=== PATIENT | female | born 1960 | race American Indian/Alaskan Native ===

== ENCOUNTER 2017-03-18 17:35 | Emergency (ER) | payer SELFPAY ==
[2017-03-18] MEDS ORDERED: CATAPRES ONE (21:30)
[2017-03-18] MEDS ORDERED: CATAPRES PO ONE (21:31)
[2017-03-18 21:53] LABS: Basophils % (Auto) 0.8 % (0.0-1.8); Eosinophils % (Auto) 3.7 % (0.0-4.3); Hematocrit 38.4 % (30.3-42.9); Hemoglobin 13.3 gm/dl (10.1-14.3); Mean Corpuscular HGB Conc 35 % (30-34); Mean Corpuscular Hemoglobin 30 pg (28-32); Mean Corpuscular Volume 87 fl (79-97); Platelet Count 201 K/mm3 (140-440); Red Cell Distribution Width 14.2 % (13.2-15.2); White Blood Count 9.4 K/mm3 (4.5-11.0)
[2017-03-18 22:14] LABS: Alanine Aminotransferase 16 units/L (7-56); Albumin 3.7 g/dL (3.9-5); Albumin/Globulin Ratio 1.2 %; Alkaline Phosphatase 90 units/L (35-129); Anion Gap 19 mmol/L; Bilirubin,Total < 0.20 mg/dL (0.1-1.2); Blood Urea Nitrogen 15 mg/dL (7-17); Calcium 8.8 mg/dL (8.4-10.2); Carbon Dioxide 24 mmol/L (22-30); Chloride 105.7 mmol/L (98-107); Glucose 135 mg/dL (65-100); Lipase 34 units/L (13-60); Potassium 3.7 mmol/L (3.6-5.0); Sodium 145 mmol/L (137-145); Total Protein 6.8 g/dL (6.3-8.2)
--- NOTE | 2017-03-19 08:32 | Emergency Department Report ---
ED General Adult HPI - General Chief complaint: Neck Pain/Injury Stated complaint: SEVERE LT SIDE NECK PAIN/LT SHOULDER/LT EYE PAIN Time Seen by Provider: 03/19/17 08:15 Source: patient Mode of arrival: Ambulatory Limitations: No Limitations - History of Present Illness Initial comments: The patient has chronic left-sided neck pain which she states he's had for 15 years involves the trapezius area. It is not midline cervical. She's had no recent injury. She is not currently working. She has history of arthritis. She has had no neurological change. She is noncompliant with her blood pressure medicine. -: Gradual, year(s) Location: left (trapezius) Radiation: non-radiation Severity scale (0 -10): 5 Quality: aching Consistency: intermittent Improves with: none Worsens with: none Associated Symptoms: denies other symptoms Treatments Prior to Arrival: none - Related Data Previous Rx's Medication Instructions Recorded Last Taken Type Cyclobenzaprine HCl [Flexeril 5 MG 5 mg PO TID PRN #20 tab 03/19/17 Unknown Rx TAB] Lisinopril/Hydrochlorothiazide 1 tab PO QDAY #30 tab 03/19/17 Unknown Rx [Zestoretic 20-12.5 mg] traMADol [Ultram] 50 mg PO Q6HR PRN #7 tablet 03/19/17 Unknown Rx Allergies Allergy/AdvReac Type Severity Reaction Status Date / Time No Known Allergies Allergy Verified 02/13/15 05:07 ED Review of Systems ROS: Stated complaint: SEVERE LT SIDE NECK PAIN/LT SHOULDER/LT EYE PAIN Other details as noted in HPI Constitutional: denies: chills, fever Eyes: denies: eye pain, eye discharge, vision change ENT: denies: ear pain, throat pain Respiratory: denies: cough, shortness of breath, wheezing Cardiovascular: denies: chest pain, palpitations Endocrine: no symptoms reported Gastrointestinal: denies: abdominal pain, nausea, diarrhea Genitourinary: denies: urgency, dysuria, discharge Musculoskeletal: as per HPI. denies: back pain, joint swelling, arthralgia Skin: denies: rash, lesions Neurological: denies: headache, weakness, paresthesias Psychiatric: denies: anxiety, depression Hematological/Lymphatic: denies: easy bleeding, easy bruising ED Past Medical Hx - Past Medical History Previous Medical History?: Yes Hx Hypertension: Yes Hx Arthritis: Yes Hx Headaches / Migraines: Yes Additional medical history: migrianes. tia - Surgical History Past Surgical History?: Yes Additional Surgical History: - Social History Smoking Status: Current Every Day Smoker Substance Use Type: None - Medications Home Medications: Home Medications Medication Instructions Recorded Confirmed Last Taken Type Cyclobenzaprine HCl [Flexeril 5 MG 5 mg PO TID PRN #20 tab 03/19/17 Unknown Rx TAB] Lisinopril/Hydrochlorothiazide 1 tab PO QDAY #30 tab 03/19/17 Unknown Rx [Zestoretic 20-12.5 mg] traMADol [Ultram] 50 mg PO Q6HR PRN #7 tablet 03/19/17 Unknown Rx ED Physical Exam - General Limitations: No Limitations General appearance: alert, in no apparent distress - Head Head exam: Present: atraumatic, normocephalic - Eye Eye exam: Present: normal appearance, PERRL, EOMI. Absent: scleral icterus - ENT ENT exam: Present: normal exam, mucous membranes moist - Neck Neck exam: Present: normal inspection, tenderness (left trapezius tenderness no paravertebral or vertebral tenderness), full ROM. Absent: meningismus, lymphadenopathy, thyromegaly - Respiratory Respiratory exam: Present: normal lung sounds bilaterally. Absent: respiratory distress - Cardiovascular Cardiovascular Exam: Present: regular rate, normal rhythm. Absent: systolic murmur, diastolic murmur, rubs, gallop - GI/Abdominal GI/Abdominal exam: Present: soft, normal bowel sounds. Absent: distended, tenderness, guarding, rebound, rigid - Extremities Exam Extremities exam: Present: normal inspection - Back Exam Back exam: Present: normal inspection - Neurological Exam Neurological exam: Present: alert, oriented X3, CN II-XII intact. Absent: motor sensory deficit - Psychiatric Psychiatric exam: Present: normal affect, normal mood - Skin Skin exam: Present: warm, dry, intact, normal color. Absent: rash ED Course Vital Signs 03/18/17 03/18/17 03/19/17 21:22 21:31 04:56 Temperature 97.7 F 98.6 F Pulse Rate 63 63 63 Respiratory 18 18 Rate Blood Pressure 195/111 157/101 Blood Pressure 195/111 [Right] O2 Sat by Pulse 100 98 Oximetry ED Medical Decision Making - Lab Data Result diagrams: 03/18/17 21:35 06/16/17 21:35 Laboratory Results - last 24 hr 03/18/17 03/18/17 21:35 21:35 WBC 9.4 RBC 4.40 Hgb 13.3 Hct 38.4 MCV 87 MCH 30 MCHC 35 H RDW 14.2 Plt Count 201 Lymph % (Auto) 40.0 H [place] % (Auto) 6.7 Eos % (Auto) 3.7 Baso % (Auto) 0.8 Lymph # 3.8 [place] # 0.6 Eos # 0.4 Baso # 0.1 Seg Neutrophils % 48.8 Seg Neutrophils # 4.6 Sodium 145 Potassium 3.7 Chloride 105.7 Carbon Dioxide 24 Anion Gap 19 BUN 15 Creatinine 1.0 Estimated GFR > 60 BUN/Creatinine Ratio 15.00 Glucose 135 H Calcium 8.8 Total Bilirubin < 0.20 AST 16 ALT 16 Alkaline Phosphatase 90 Troponin T < 0.010 Total Protein 6.8 Albumin 3.7 L Albumin/Globulin Ratio 1.2 Lipase 34 - EKG Data EKG shows normal: sinus rhythm, axis, intervals, QRS complexes, ST-T waves Rate: bradycardia Critical care attestation.: If time is entered above; I have spent that time in minutes in the direct care of this critically ill patient, excluding procedure time. ED Disposition Clinical Impression: Musculoskeletal neck pain, Uncontrolled hypertension Disposition: - TO HOME OR SELFCARE Is pt being admited?: No Does the pt Need Aspirin: No Condition: Stable Instructions: Hypertension (ED), Musculoskeletal Pain (ED) Additional Instructions: Return any acute change or problem. Blood pressure management with primary care for example [facility]. Rx as directed. Prescriptions: Cyclobenzaprine HCl [Flexeril 5 MG TAB] 5 mg PO TID PRN #20 tab PRN Reason: Spasms Lisinopril/Hydrochlorothiazide [Zestoretic 20-12.5 mg] 1 tab PO QDAY #30 tab traMADol [Ultram] 50 mg PO Q6HR PRN #7 tablet PRN Reason: Pain Referrals: PRIMARY CARE, [Primary Care Provider] - 3-5 Days Time of Disposition: 08:32
[2017-03-19 08:36] VITALS: BP 190/91
== END 2017-03-19 08:49 | disposition home or self-care (01) ==
LOC: ED 17:35
DX: M54.2 Cervicalgia (principal); I10 Essential (primary) hypertension; G43.909 Migraine, unspecified, not intractable, without status migrainosus; M19.90 Unspecified osteoarthritis, unspecified site; F17.210 Nicotine dependence, cigarettes, uncomplicated
CPT/HCPCS: 36415; 80053; 83690; 84484; 85025; 93005; 93010; 99284

== ENCOUNTER 2019-01-14 20:10 | Emergency (ER) | payer OTHER ==
--- NOTE | 2019-01-14 21:40 | Emergency Department Report ---
Chief Complaint: Headache Stated Complaint: LOWER BACK PAIN/HEADACHE Time Seen by Provider: 01/14/19 21:36 - HPI History of Present Illness: Pt presents frontal FLORES, states she has chronic migraines chronic back pain, hx of DDD, hx of "slipped disc" no new fall, injury, trauma states she has tingling in her bilateral hands no numbness, weakness hx of HTN, is supposed to be taking atenolol, lisinopril, and hctz (+) smoker no ETOH/drug use MSE screening note: Focused history and physical exam performed. Due to findings the following was ordered: labs, UA, EKG, CT head ED Disposition for MSE Condition: Stable
[2019-01-14] MEDS ORDERED: CATAPRES PO ONE (22:09)
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
[2019-01-14 23:02] LABS: Hematocrit 38.3 % (30.3-42.9); Hemoglobin 13.3 gm/dl (10.1-14.3); Mean Corpuscular Volume 89 fl (79-97); Red Blood Count 4.31 M/mm3 (3.65-5.03)
[2019-01-14 23:03] LABS: Basophils % (Auto) 0.8 % (0.0-1.8); Eosinophils # (Auto) 0.1 K/mm3 (0.0-0.4); Eosinophils % (Auto) 1.2 % (0.0-4.3); Lymphocytes # (Auto) 2.6 K/mm3 (1.2-5.4); Lymphocytes % (Auto) 41.7 % (13.4-35.0); Mean Corpuscular HGB Conc 35 % (30-34); Monocytes # (Auto) 0.4 K/mm3 (0.0-0.8); Platelet Count 210 K/mm3 (140-440); Red Cell Distribution Width 14.2 % (13.2-15.2)
[2019-01-15 00:01] LABS: Bilirubin,Urine Negative (Negative); Blood,Urine Small (Negative); Color,Urine Yellow (Yellow); Protein,Urine <15 mg/dL mg/dL (Negative)
[2019-01-15 00:02] LABS: Mucus,Urine Few /HPF
[2019-01-15] MEDS ORDERED: ULTRAM PO ONE (00:04)
--- NOTE | 2019-01-15 00:19 | Cat Scan Report ---
PROCEDURE: CT HEAD/BRAIN WO CON TECHNIQUE: Computerized tomography of the head was performed without contrast material. HISTORY: tingling in the bilateral hands, elevated BP COMPARISONS: None . FINDINGS: Skull and scalp: Normal . Paranasal sinuses: Normal . Ventricles and subarachnoid spaces: Normal . Cerebrum: No evidence of hemorrhage, acute infarction or mass . Cerebellum and brainstem: No evidence of hemorrhage, acute infarction or mass . Vasculature: Normal . Other: None . ASPECTS: 10 IMPRESSION: There is no evidence of an acute intracranial process . This document is electronically signed by Marlen Lambert DO., January 15 2019 12:17:19 AM ET
[2019-01-15 01:06] LABS: Alanine Aminotransferase 11 units/L (7-56); Albumin 4.3 g/dL (3.9-5); BUN/Creatinine Ratio 8; Blood Urea Nitrogen 9 mg/dL (7-17); Calcium 9.3 mg/dL (8.4-10.2)
[2019-01-15 01:07] LABS: Hemolysis Index 7
[2019-01-16 17:55] VITALS: BP 131/72
== END 2019-01-15 01:38 | disposition home or self-care (01) ==
LOC: ED 20:10
DX: I10 Essential (primary) hypertension (principal); M54.5 Low back pain; G89.29 Other chronic pain; Z91.14 Patient's other noncompliance with medication regimen; M19.90 Unspecified osteoarthritis, unspecified site; F17.200 Nicotine dependence, unspecified, uncomplicated
CPT/HCPCS: 36415; 70450; 80053; 81001; 85025; 93005; 93010